=== PATIENT | female | born 1985 | race Caucasian/White ===

== ENCOUNTER 2020-03-21 12:17 | Emergency (ER) | payer OTHER, SELFPAY ==
--- NOTE | ~2020-03-21 | XR_ITS ---
EXAMINATION: XR elbow LT min 3V DATE: 03/21/2020 13:14 INDICATION: Left elbow injury. Pain. TECHNIQUE: 4 views of left elbow were obtained. COMPARISON: None. FINDINGS: Bone alignment is normal. No fracture. Joint spaces are well maintained. There is no elbow joint effusion. IMPRESSION: 1. Normal left elbow. Reviewed, dictated and finalized at location A. S ENABLEMENT CONSULTANT IMPRESSION: 1. Normal left elbow.
[2020-03-21 12:17] VITALS: BP 123/77; PULSE 93; RESP 18; TEMP 36.5; O2SAT 100
[2020-03-21] MEDS: IBUPROFEN 600 MG TABLET PO (12:50)
--- NOTE | 2020-03-21 12:54 | ED.GENADULT ---
HPI - General Adult General Chief complaint: Extremity Injury, Upper <Godfrey Flores PA-C - Last Filed: 03/21/20 13:33> Stated complaint: Left Elbow Pain <Godfrey Flores PA-C - Last Filed: 03/21/20 13:33> Time Seen by Provider: 03/21/20 12:22 <Godfrey Flores PA-C - Last Filed: 03/21/20 13:33> Source: patient <Godfrey Flores PA-C - Last Filed: 03/21/20 13:33> Mode of arrival: ambulatory <Godfrey Flores PA-C - Last Filed: 03/21/20 13:33> Limitations: no limitations <Godfrey Flores PA-C - Last Filed: 03/21/20 13:33> History of Present Illness HPI narrative: Patient is a 35-year-old female who presents to emergency department for evaluation of left elbow pain that began while picking an object up patient notes aching pain from the elbow that radiates down into the hand worse with any activity or movement patient denies other injuries or complaints <Godfrey Flores PA-C - Last Filed: 03/21/20 13:33> Related Data Home medications: Home Medications Medication Instructions Recorded Confirmed No Home Medications 03/21/20 03/21/20 <Godfrey Flores PA-C - Last Filed: 03/21/20 13:33> Allergies/adverse reactions: Allergies Allergy/AdvReac Type Severity Reaction Status Date / Time No Known Allergies Allergy Verified 03/21/20 12:21 <Godfrey Flores PA-C - Last Filed: 03/21/20 13:33> Review of Systems Review of Systems: All systems reviewed & are unremarkable except as noted in HPI and below <Godfrey Flores PA-C - Last Filed: 03/21/20 13:33> PMFSH Social History Social History: Social History Gender identity (if verbalized by the patient): Female <Godfrey Flores PA-C - Last Filed: 03/21/20 13:33> Exam Narrative: Exam Narrative: GENERAL: Well-appearing, well-nourished, and in no acute distress. HEAD: Normocephalic, atraumatic. EYES: PERRLA and EOMI. ENT: Nares clear, no rhinorrhea or epistaxis. Mucous membranes moist. EXTREMITIES: Normal range of motion. No edema. Tenderness of the left elbow no deformities noted SKIN: Warm, dry, no rash. NEURO: No focal deficits. Alert and oriented x3. Neurovascularly intact PSYCH: Normal mood and affect. <MAGUE Price Last Filed: 03/21/20 13:33> Course Course Emergency Course: Patient with elbow pain no fracture felt appropriate for outpatient reevaluation provided with orthopedic follow-up <Godfrey Flores PA-C - Last Filed: 03/21/20 13:33> Vital Signs Vital signs: Vital Signs Temperature 36.5 C 03/21/20 12:17 Pulse Rate 93 03/21/20 12:17 Respiratory Rate 18 03/21/20 12:17 Blood Pressure 123/77 03/21/20 12:17 Pulse Oximetry 100 03/21/20 12:17 Temperature 36.5 C 03/21/20 12:17 Pulse Rate 88 03/21/20 13:16 Respiratory Rate 15 03/21/20 13:16 Blood Pressure 113/81 03/21/20 13:16 Pulse Oximetry 99 03/21/20 13:16 <Godfrey Flores PA-C - Last Filed: 03/21/20 13:33> Vital Signs Temperature 36.5 C 03/21/20 12:17 Pulse Rate 93 03/21/20 12:17 Respiratory Rate 18 03/21/20 12:17 Blood Pressure 123/77 03/21/20 12:17 Pulse Oximetry 100 03/21/20 12:17 Temperature 36.5 C 03/21/20 12:17 Pulse Rate 88 03/21/20 13:16 Respiratory Rate 15 03/21/20 13:16 Blood Pressure 113/81 03/21/20 13:16 Pulse Oximetry 99 03/21/20 13:16 <Felisha Walsh MD - Last Filed: 03/21/20 14:11> Medical Decision Making MDM Narrative Medical decision making narrative: Patients injury or pain is consistent with musculoskeletal etiology. No signs of neurological or vascular compromise on exam. Compartments and tisues are soft without signs of compartment syndrome. Pain is felt appropriate for further evaluation on an outpatient basis. <Godfrey Flores PA-C - Last Filed: 03/21/20 13:33> Vital Signs Vital Signs: Vital Signs Temperature
[2020-03-21 13:16] VITALS: BP 113/81; PULSE 88; RESP 15; O2SAT 99
== END 2020-03-21 13:52 | disposition home or self-care (01) ==
PROVIDERS: Emergency Provider Emergency Medicine
DX: M25.522 Pain in left elbow (principal)
CPT/HCPCS: 73080; 99283; A9270

== ENCOUNTER 2020-04-07 08:04 | Emergency (ER) | payer OTHER, SELFPAY ==
--- NOTE | ~2020-04-07 | CT_ITS ---
EXAMINATION: CT cervical spine wo con DATE: 04/07/2020 08:52 INDICATION: Neck pain. Head injury. TECHNIQUE: Computed tomography (CT) of the cervical spine was performed without intravenous contrast. Automated exposure control and iterative reconstruction technique were employed. The dose-length pro duct was 404.11 mGy-cm. COMPARISON: None FINDINGS: There is 11 degrees dextroscoliosis of cervical spine. Vertebral body heights are normal. T here is mildly decreased disc height at C3-C4 and C4-C5, moderately decreased disc height at C5-C6, a nd mildly decreased disc height at C6-C7. The following disc levels are specifically discussed: C2-C3: There is no uncovertebral joint osteoarthritis. There is no facet joint osteoarthritis. There is no neural foraminal stenosis. There is no central canal stenosis. C3-C4: There is mild bilateral uncovertebral joint osteoarthritis. There is mild left facet joint ost eoarthritis. There is no neural foraminal stenosis. There is mild central canal stenosis. C4-C5: There is no uncovertebral joint osteoarthritis. There is no facet joint osteoarthritis. There is no neural foraminal stenosis. There is mild central canal stenosis. C5-C6: There is moderate bilateral uncovertebral joint osteoarthritis. There is mild right and modera te left facet joint osteoarthritis. There is mild bilateral neural foraminal stenosis. There is mild central canal stenosis. C6-C7: There is no uncovertebral joint osteoarthritis. There is mild right and moderate left facet radha int osteoarthritis. There is no neural foraminal stenosis. There is no central canal stenosis. C7-T1: There is no uncovertebral joint osteoarthritis. There is severe bilateral facet joint osteoart hritis. There is mild left neural foraminal stenosis. There is no central canal stenosis. IMPRESSION: 1. No fracture. 2. Moderate cervical spondylosis. Reviewed, dictated and finalized at location B. ULATION ANALYST
--- NOTE | ~2020-04-07 | CT_ITS ---
EXAMINATION: CT brain wo con DATE: 04/07/2020 08:51 INDICATION: Head injury and neck pain. TECHNIQUE: Computed tomography (CT) of the head was performed without intravenous contrast. Sagittal and coronal reconstructions were performed. Extra dose Shad head The dose-length product was 605. 33 mGy-cm. COMPARISON: None FINDINGS: No fracture. No acute intracranial hemorrhage, acute infarction or abnormal extra axial fluid collect ion. Ventricles are normal and symmetric. Aleksey cisterna magna. No mass/mass effect. The orbits and ma stoid air cells are normal. Opacification of the posterior most left ethmoid air cell. IMPRESSION: 1. No fracture or acute intracranial process. Reviewed, dictated and finalized at location A. N RESOURCES PROFESSIONAL
[2020-04-07 08:07] VITALS: BP 109/75; PULSE 94; RESP 19; TEMP 36.8; O2SAT 100
--- NOTE | 2020-04-07 08:40 | ED.HEATRA ---
HPI - Head Injury General Chief complaint: Head Injury Stated complaint: hit head on metal shelve at work Time Seen by Provider: 04/07/20 08:26 Source: patient Mode of arrival: EMS Limitations: no limitations History of Present Illness HPI Narrative: 35 years old white female complaining of headache and neck pain. Patient was bending over at work to do something got up and the back of her head against a metal beam, caused headache and dizziness and blurry vision. Patient denied loss of consciousness. Patient arrived to the ED by ambulance. Patient denies other injuries. Patient denies any fever, chills, vomiting, diarrhea, chest pain, shortness of breath, exposure to anybody known having COVID-19 Related Data Allergies Allergy/AdvReac Type Severity Reaction Status Date / Time No Known Allergies Allergy Verified 04/07/20 08:15 Review of Systems Review of Systems: Narrative: CONSTITUTIONAL: Denies fever, chills, or sweats. EYES: Denies visual changes, redness, or discharge. ENT: Denies rhinorrhea, congestion, sore throat, or otalgia. CARDIOVASCULAR: Denies chest pain, palpitations, or edema. RESPIRATORY: Denies cough or dyspnea. GASTROINTESTINAL: Denies abdominal pain, nausea, vomiting, or diarrhea. GENITOURINARY: Denies dysuria or hematuria. SKIN: Denies rash or itching. MUSCULOSKELETAL: Denies back pain, joint pain, or myalgia. NEUROLOGIC: Headache and neck pain PMFSH Social History Social History Gender identity (if verbalized by the patient): Female Exam Narrative: Exam Narrative: General appearance: Well-developed, well-nourished Skin: Normal color Head: Normocephalic, nontraumatic, patient have very thick long hair. Eyes: Clear conjunctiva ENT: Oropharynx normal, ears normal, nose normal Neck: Supple, posterior tenderness, no bruises Chest and respiratory: Airway patent, no respiratory distress, no accessory muscle use Heart: Regular rate/rhythm Musculoskeletal: Normal range of motion, nontender back Neurologic: Alert and oriented ?3, COVERSTITCH BINDER is normal as tested, no gross motor deficit Course Course Emergency Course: Stable Vital Signs Vital signs: Vital Signs Temperature 36.8 C 04/07/20 08:07 Pulse Rate 94 04/07/20 08:07 Respiratory Rate 19 04/07/20 08:07 Blood Pressure 109/75 04/07/20 08:07 Pulse Oximetry 100 04/07/20 08:07 Temperature 36.8 C 04/07/20 08:07 Pulse Rate 94 04/07/20 08:07 Respiratory Rate 19 04/07/20 08:07 Blood Pressure 109/75 04/07/20 08:07 Pulse Oximetry 100 04/07/20 08:07 MDM - Head Injury MDM Narrative Medical decision making narrative: Closed head injury, cervical sprain/strain is my concern. CT head and cervical spine ordered. IV Toradol, oral Vistaril ordered. Further plan to follow Imaging Data Radiologist's impression: Impressions Head CT 04/07/20 08:53 IMPRESSION: 1. No fracture or acute intracranial process. Cervical Spine CT 04/07/20 08:54 IMPRESSION: 1. No fracture. 2. Moderate cervical spondylosis. Critical Care Time Critical Care Time Critical Care Time: No Discharge Plan Discharge Clinical Impression: Closed head injury Qualifiers: Encounter type: initial encounter Qualified Code(s): S09.90XA - Unspecified injury of head, initial encounter Sprain of cervical neck Qualifiers: Encounter type: subsequent encounter Qualified Code(s): S13.9XXD - Sprain of joints and ligaments of unspecified parts of neck, subsequent encounter Patient Disposition: Home, Self-Care Condition: Stable Instructions: Head Injury (ED), Cervical Sprain (ED) Additional Instruction
[2020-04-07] MEDS: KETOROLAC 30 MG/ML VIAL (*BKC) IV PUSH (09:03)
[2020-04-07] MEDS: hydrOXYzine pamoate 25 MG CAPSULE 50 MG PO (09:03)
[2020-04-07 09:48] VITALS: BP 105/62; PULSE 79; RESP 14; O2SAT 100
== END 2020-04-07 09:40 | disposition home or self-care (01) ==
PROVIDERS: Emergency Provider Emergency Medicine
DX: S09.90XA Unspecified injury of head, initial encounter (principal); S13.9XXA Sprain of joints and ligaments of unspecified parts of neck, initial encounter; W22.8XXA Striking against or struck by other objects, initial encounter
CPT/HCPCS: 70450; 72125; 96374; 99284; A9270; J1885

== ENCOUNTER 2020-05-06 08:36 | Emergency (ER) | payer OTHER, SELFPAY ==
[2020-05-06 08:40] VITALS: BP 110/86; PULSE 118; RESP 18; TEMP 36.2; O2SAT 100
--- NOTE | 2020-05-06 09:02 | ED.BACK ---
HPI - Back Pain/Injury General Chief Complaint: Back Pain/Injury Stated Complaint: low back pain Time Seen by Provider: 05/06/20 08:53 History of Present Illness HPI Narrative: 35 yo female presents to the ED for back pain. She was pushing a cart at work when she turned to the side and felt a sudden sharp pain in the right mid back. She reports that there is a hard lump in in her back. No weakness, numbness, trauma. She has not tried anything for the pain. Related Data Allergies Allergy/AdvReac Type Severity Reaction Status Date / Time No Known Allergies Allergy Verified 05/06/20 08:48 Review of Systems Review of Systems: All systems reviewed & are unremarkable except as noted in HPI and below Constitutional: Constitutional: Denies fever(s) and Denies weakness Cardiovascular: Cardiovascular: Denies chest pain Respiratory: Respiratory: Denies dyspnea Gastrointestinal: Gastrointestinal: Denies abdominal pain Musculoskeletal: Musculoskeletal: Reports back pain Neurologic: Denies numbness and Denies weakness PMFSH Social History Social History Gender identity (if verbalized by the patient): Female Exam Const: General: no acute distress and alert Nutritional Appearance: obese Orientation/consciousness: patient oriented x3 HENMT: Head: normal to inspection Neck: Neck: normal visual inspection Resp: Effort & Inspection: normal respiratory effort Auscultation: clear to auscultation bilaterally Cardio: Rate: regular rate Rhythm: regular rhythm GI: GI Palp: Yes Soft to palpation and No Tenderness to palpation present (GI) Back/Spine/Pelvis: Back: no CVA tenderness Other: Tenderness in right thoracic back Skin: General skin exam: normal color Rashes: no rashes Wounds: no wounds Neuro: General: patient oriented x3, moves all extremities, no focal motor deficits and CN's II-XI intact bilaterally Speech: normal speech Gait exam (Neuro): Normal gait present Extrem: General: normal to inspection Course Vital Signs Vital signs: Vital Signs Temperature 36.2 C L 05/06/20 08:40 Pulse Rate 118 H 05/06/20 08:40 Respiratory Rate 18 05/06/20 08:40 Blood Pressure 110/86 05/06/20 08:40 Pulse Oximetry 100 05/06/20 08:40 Temperature 36.2 C L 01/08/21 08:40 Pulse Rate 88 05/06/20 10:30 Respiratory Rate 20 05/06/20 10:30 Blood Pressure 132/88 05/06/20 10:30 Pulse Oximetry 99 05/06/20 10:30 MDM - Back Pain/Injury MDM Narrative Medical decision making narrative: H&P consistent with thoracic back strain Discharge Plan Discharge Clinical Impression: Strain of thoracic back region Patient Disposition: Home, Self-Care Condition: Stable Instructions: Thoracic Back Strain (ED) Prescriptions: New naproxen 500 mg tablet 500 mg PO BID PRN (Reason: pain) Qty: 30 RF: 0 cyclobenzaprine 10 mg tablet 10 mg PO TID PRN (Reason: muscle spasm) Qty: 20 RF: 0 Follow-up/Referrals: Jeffrey Alvarado Jr., MD [Physician] - PHYSICIAN,SECURITY MESSENGER [Primary Care Provider] -
[2020-05-06] MEDS: KETOROLAC (*BKC) 60 MG/2 ML VIAL IM (10:00)
[2020-05-06] MEDS: ACETAMINOPHEN 500 MG TABLET 1000 MG PO (10:01)
[2020-05-06] MEDS: CYCLOBENZAPRINE HCL 10 MG TABLET PO (10:01)
[2020-05-06 10:30] VITALS: BP 132/88; PULSE 88; RESP 20; O2SAT 99
== END 2020-05-06 10:30 | disposition home or self-care (01) ==
PROVIDERS: Emergency Provider Emergency Medicine
DX: S29.012A Strain of muscle and tendon of back wall of thorax, initial encounter (principal); X50.9XXA Other and unspecified overexertion or strenuous movements or postures, initial encounter
CPT/HCPCS: 96372; 99283; A9270; J1885

== ENCOUNTER 2020-08-10 13:20 | Emergency (ER) | payer OTHER, SELFPAY ==
--- NOTE | ~2020-08-10 | XR_ITS ---
EXAMINATION: XR ankle LT min 3V DATE: 08/10/2020 14:01 INDICATION: Left ankle injury and swelling. TECHNIQUE: 4 views of left ankle were obtained. COMPARISON: Left ankle radiographs 09/09/2017 FINDINGS: Bone alignment is normal. No fracture. Joint spaces are well maintained. There is an enthes ophyte at plantar aspect of calcaneal tuberosity. Ankle soft tissue swelling is noted. IMPRESSION: 1. No fracture. Reviewed, dictated and finalized at location A. IMPRESSION: 1. No fracture.
[2020-08-10 13:43] VITALS: BP 126/49; PULSE 98; RESP 16; TEMP 36.4; O2SAT 100
--- NOTE | 2020-08-10 14:19 | ED.LOWEXIN ---
HPI - Extremity Injury (Lower) General Chief Complaint: Extremity Injury, Lower Stated Complaint: left ankle pain Time Seen by Provider: 08/10/20 13:47 Source: patient and RN notes reviewed Mode of arrival: ambulatory Limitations: no limitations History of Present Illness HPI Narrative: Patient presents today complaining of a left ankle injury. She rolled her ankle off the curb at 1230 this afternoon. Denies numbness or tingling. Currently rates her pain 8/10, which increases with movement and weightbearing. She has tried no interventions prior to arrival. She has been ambulatory with increased pain. MD complaint: ankle injury Related Data Home Medications Medication Instructions Recorded Confirmed No Home Medications 08/10/20 08/10/20 Allergies Allergy/AdvReac Type Severity Reaction Status Date / Time No Known Allergies Allergy Verified 08/10/20 13:38 Review of Systems Review of Systems: Narrative: CONSTITUTIONAL: Denies body aches, fever, chills, or sweats. EYES: Denies visual changes, redness, or discharge. ENT: Denies rhinorrhea, congestion, sore throat, or otalgia. CARDIOVASCULAR: Denies chest pain, palpitations, or edema. RESPIRATORY: Denies cough or dyspnea. GASTROINTESTINAL: Denies abdominal pain, nausea, vomiting, or diarrhea. GENITOURINARY: Denies dysuria or hematuria. SKIN: Denies rash, itching, or wounds. MUSCULOSKELETAL: Denies back pain, or myalgia. + Left ankle injury NEUROLOGIC: Denies headache, numbness, tingling, or weakness. PSYCH: Denies depression or anxiety. PMFSH Social History Social History Gender identity (if verbalized by the patient): Female Comments At time of signature, I have reviewed and agree with nursing past medical, surgical, social and family history unless otherwise noted. Please see nursing chart for further information. There is no relevant family history pertinent to the presenting complaint Exam Narrative: Exam Narrative: GENERAL: Well-appearing, well-nourished, and in no acute distress. HEAD: Normocephalic, atraumatic. EYES: EOMI. No redness or drainage. Conjunctivae normal. ENT: Mucous membranes pink and moist. NECK: Normal AROM. CHEST: No respiratory distress. EXTREMITIES: Left ankle: Bony and soft tissue tenderness to the anterior, medial, and lateral ankle, with mild edema. Tenderness extends to the mid foot, over all 5 metatarsals. Distal sensation intact. Capillary refill normal. Pedal pulse normal. Full range of motion of all toes with increased pain. Decreased range of motion of the ankle due to pain. SKIN: Warm, dry, no rash. Capillary refill normal. Normal skin turgor. NEURO: No focal deficits. Alert and oriented x3. Gait steady. PSYCH: Normal affect. No signs of depression or anxiety. Course Vital Signs Vital signs: Vital Signs Temperature 97.5 F L 08/10/20 13:43 Pulse Rate 98 08/10/20 13:43 Respiratory Rate 16 08/10/20 13:43 Blood Pressure 126/49 L 08/10/20 13:43 Pulse Oximetry 100 08/10/20 13:43 Temperature 97.5 F L 08/10/20 13:43 Pulse Rate 98 08/10/20 13:43 Respiratory Rate 16 08/10/20 13:43 Blood Pressure 126/49 L 08/10/20 13:43 Pulse Oximetry 100 08/10/20 13:43 Reviewed. Pt has been instructed to follow up with her PCP regarding her elevated blood pressure today. MDM - Extremity Injury (Lower) Differential Diagnosis Differential diagnosis: Likely ankle sprain and strain, ankle fracture and other (Foot fracture, foot sprain, contusion) Imaging Data Radiologist's impression: ITS Impressions Ankle X-Ray 08/10/20 14:02 IMPRESSION: 1. No fracture. Critical Care Time Critical Care Time Critical Care Time: No Discharge Plan Discharge Clinical Impression: Left ankle sprain Qualifiers: Encounter type: initial encounter Involved ligament of ankle: unspecified ligament Qualified Code(s): S93.402A - Sprain of
== END 2020-08-10 14:26 | disposition home or self-care (01) ==
PROVIDERS: Emergency Provider Nurse Practitioner
DX: S93.402A Sprain of unspecified ligament of left ankle, initial encounter (principal); X50.9XXA Other and unspecified overexertion or strenuous movements or postures, initial encounter
CPT/HCPCS: 73610; 99213; G0463

== ENCOUNTER 2020-09-12 12:24 | Emergency (ER) | payer OTHER, SELFPAY ==
--- NOTE | ~2020-09-12 | XR_ITS ---
EXAMINATION: XR hand RT min 3V, XR wrist RT min 3V EXAM DATE: 09/12/2020 12:51 (accession [id number]), 09/12/2020 12:52 (accession [id number]) INDICATION: Initial encounter following injury, with pain of the right wrist and hand. TECHNIQUE: Right hand frontal, lateral and oblique projections obtained and reviewed. Right wrist fro ntal, frontal with ulnar deviation, oblique and lateral projections obtained and reviewed. There is no prior study for comparison. FINDINGS: Right metacarpal bones are unremarkable. Right wrist scapholunate joint space is maintain ed. There are no acute fractures or dislocations identified. There is no subcutaneous gas. The soft tissue is unremarkable. There are no radiopaque foreign bodies. IMPRESSION: No acute osseous findings. Reviewed, dictated and finalized at location A. IMPRESSION: No acute osseous findings. IMPRESSION: No acute osseous findings.
[2020-09-12 12:32] VITALS: BP 108/66; PULSE 84; RESP 16; TEMP 36.9; O2SAT 100
--- NOTE | 2020-09-12 12:33 | ED.UPPEXIN ---
HPI - Extremity Injury (Upper) General Chief Complaint: Extremity Injury, Upper Stated Complaint: Right wrist pain Time Seen by Provider: 09/12/20 12:56 Source: patient and RN notes reviewed Mode of arrival: ambulatory Limitations: no limitations History of Present Illness HPI narrative: 35-year-old female presents with concern for right wrist and hand pain. She is right-hand dominant. Reports multiple injuries over the past month to the hand and wrist. Reports after the first injury 1 month ago the pain and range of motion never went back to normal. Reports yesterday she slipped with her hand going into a washing machine causing dorsal wrist pain and digit pain with range of motion. She reports while she was at work today she attempted to lift a heavy object causing worsening dorsal hand and digit pain. Reports she is taken Tylenol with some relief for pain prior to today's injury. She reports she is unable to move her fifth digit of her right hand since her original injury. MD complaint: injury to: right and wrist Related Data Home Medications Medication Instructions Recorded Confirmed No Home Medications 08/10/20 08/10/20 Allergies Allergy/AdvReac Type Severity Reaction Status Date / Time No Known Allergies Allergy Verified 08/10/20 13:38 Review of Systems Review of Systems: Narrative: CONSTITUTIONAL: Denies malaise, chills, sweats, or fever. SKIN: Denies abrasions, lacerations. Reports dorsal right hand swelling and bruising MUSCULOSKELETAL: Reports right wrist and hand pain, swelling, decreased range of motion NEUROLOGIC: Denies numbness, weakness All systems reviewed & are unremarkable except as noted in HPI and below PMFSH Social History Social History Gender identity (if verbalized by the patient): Female Comments At time of signature, agree with nursing past medical, surgical, social and family history. There is no relevant family history pertinent to the presenting complaint Exam Narrative: Exam Narrative: GENERAL: Well-appearing, well-nourished, and in no acute distress. HEAD: Normocephalic, atraumatic. EYES: PERRLA, conjunctivae clear NECK: Supple. CHEST: Speaks in full sentences. No respiratory distress. HEART: Regular rate and rhythm. Normal and equal peripheral pulses. EXTREMITIES: Right hand and digits of right hand have normal sensation, limited range of motion. Dorsal wrist and hand edema and ecchymosis. 5/5 strength with digits 1, 2, 3, 4 flexion and extension. 2/5 strength with digit 5 flexion. Normal sensation with sensitivity to light touch and pain. Dorsal tenderness. Unable to do okay sign or thumbs up. No open wounds, no skin tenting, no devitalized tissue or atrophy, no trophic changes, no obvious deformity, alignment normal, nearby joints and structures intact. Distal pulses palpable and equal bilaterally, skin warm, dry, pink. Capillary refill less than 3 seconds. SKIN: Warm, dry, no rash. NEURO: Alert and oriented x3. PSYCH: Normal mood and affect Course Course Emergency Course: Patient is aware of diagnosis, understands and agrees to treatment plan. Anticipatory guidance given. Patient agrees to follow-up as directed and is aware of reasons to seek care at the emergency department. Portions of this record may have been created with voice recognition software Vital Signs Vital signs: Vital Signs Temperature 98.5 F 09/12/20 12:32 Pulse Rate 84 09/12/20 12:32 Respiratory Rate 16 09/12/20 12:32 Blood Pressure 108/66 09/12/20 12:32 Pulse Oximetry 100 09/12/20 12:32 Temperature 98.5 F 09/12/20 12:32 Pulse Rate 84 09/12/20 12:32 Respiratory Rate 16 09/12/20 12:32 Blood Pressure 108/66 09/12/20 12:32 Pulse Oximetry 100 09/12/20 12:32 Reviewed. MDM - Extremity Injury (Upper) MDM Narrative Medical decision making narrative: Patients injury and pain is consistent with musculoskel
== END 2020-09-12 13:13 | disposition home or self-care (01) ==
PROVIDERS: Emergency Provider Nurse Practitioner
DX: S63.501A Unspecified sprain of right wrist, initial encounter (principal); S66.911A Strain of unspecified muscle, fascia and tendon at wrist and hand level, right hand, initial encounter; X50.0XXA Overexertion from strenuous movement or load, initial encounter
CPT/HCPCS: 73110; 73130; 99213; G0463

== ENCOUNTER 2021-10-24 06:50 | Observation (INO) | payer OTHER, SELFPAY ==
[2021-10-24] VITALS (10 sets, daily range): BP systolic 115–132; BP diastolic 56–86; PULSE 78–94; RESP 12–20; TEMP 36.4–36.6; O2SAT 97–100; BMI 29.7
--- NOTE | ~2021-10-24 | MR_ITS ---
EXAMINATION: MR brain/brain stem wo/w con DATE: 10/24/2021 12:38 INDICATION: Left arm numbness TECHNIQUE: Magnetic resonance imaging (MRI) of the brain and brainstem was performed without and with 15 mL Multihance intravenous contrast. Sequences included sagittal and axial T1-weighted SE, axial d iffusion-weighted FS SE, axial T2*-weighted GRE, axial T2-weighted FLAIR, and axial T2-weighted FSE. Postcontrast axial and coronal T1-weighted SE was obtained. Apparent diffusion coefficient (ADC) maps were created. COMPARISON: None. FINDINGS: There are no areas of restricted diffusion to suggest acute infarction. No intracranial hemorrhage or abnormal intracranial mass lesion. There are no intraparenchymal signal abnormalities seen on the ot her pulse sequences. The ventricles are symmetric and normal in size. Normal variant megacisterna mag na. There are no abnormal extra-axial fluid collections. Flow voids are seen in the cerebral arteries on the T2-weighted sequences consistent with their expected patency. Mild mucosal thickening in the paranasal sinuses. Visualized orbits and soft tissues are unremarkable. There are no areas of abnorma l enhancement on the post contrast images. IMPRESSION: 1. Normal anatomic variant chelsi cisterna magna. Otherwise normal brain with no acute intracranial pro cess or abnormally enhancing lesions. Reviewed, dictated and finalized at location A. IMPRESSION: 1. Normal anatomic variant chelsi cisterna magna. Otherwise normal brain with no acute intracranial process or abnormally enhancing lesions.
--- NOTE | ~2021-10-24 | MR_ITS ---
EXAMINATION: MR cervical spine wo con DATE: 10/24/2021 12:38 INDICATION: Sudden onset left arm numbness and weakness morning of 10/24. Left arm heaviness with left -sided chest pain. TECHNIQUE: Magnetic resonance imaging (MRI) of the cervical spine was performed without intravenous c ontrast. Sequences included sagittal T2-weighted FSE, sagittal T2-weighted FS FSE, sagittal T1-weight ed FSE, axial MERGE, and axial T2-weighted FSE. COMPARISON: CT cervical spine 04/07/2020. FINDINGS: Mildly motion limited. Craniocervical association and atlantoaxial joint are intact. Normal alignment. Vertebral body heights are maintained. Multilevel disc dehydration and height loss. The c ord signal is normal. The following disc levels are specifically discussed: C2-C3: The disc does not extend beyond the endplate margin. There is no uncovertebral joint osteoarth ritis. There is no facet joint osteoarthritis. There is no neural foraminal stenosis. There is no mik tral canal stenosis. C3-C4: The disc does not extend beyond the endplate margin. There is no uncovertebral joint osteoarth ritis. There is mild facet joint osteoarthritis. There is no neural foraminal stenosis. There is no c entral canal stenosis. C4-C5: Mild diffuse bulge There is mild uncovertebral joint osteoarthritis. There is mild facet joint osteoarthritis. There is no neural foraminal stenosis. There is no central canal stenosis. C5-C6: 4 mm left paracentral protrusion superimposed on a diffuse bulge with marginal osteophytosis. There is mild uncovertebral joint osteoarthritis. There is moderate facet joint osteoarthritis. There is mild bilateral neural foraminal stenosis. There is moderate central canal stenosis. C6-C7: 3 mm central extrusion extending 10 mm superiorly along the posterior surface of C6. There is moderate bilateral uncovertebral joint osteoarthritis. There is moderate bilateral facet joint osteoa rthritis. There is moderate bilateral neural foraminal stenosis. There is moderate central canal sten osis. C7-T1: The disc does not extend beyond the endplate margin. There is mild uncovertebral joint osteoar thritis. There is mild facet joint osteoarthritis. There is no neural foraminal stenosis. There is no central canal stenosis. IMPRESSION: 1. Superiorly directed 3 mm central C6-7 disc protrusion, which in combination with moderate uncovert ebral joint and facet osteoarthritis, causes moderate central canal narrowing. 2. 4 mm left paracentral C5-6 discs protrusion, which in combination with uncovertebral joint and fac et osteoarthritis, causes moderate central canal stenosis. 3. Moderate bilateral neural foraminal narrowing at C6-7. Reviewed, dictated and finalized at location K. IMPRESSION: 1. Superiorly directed 3 mm central C6-7 disc protrusion, which in combination with moderate uncovertebral joint and facet osteoarthritis, causes moderate mik tral canal narrowing. 2. 4 mm left paracentral C5-6 discs protrusion, which in combination with uncov ertebral joint and facet osteoarthritis, causes moderate central canal stenosis . 3. Moderate bilateral neural foraminal narrowing at C6-7.
--- NOTE | ~2021-10-24 | CT_ITS ---
EXAMINATION: CT brain wo con DATE: 10/24/2021 07:29 INDICATION: Left arm numbness TECHNIQUE: Computed tomography (CT) of the head was performed without intravenous contrast. Sagittal and coronal reconstructions were performed. The mA was adjusted according to patient size. Iterative reconstruction technique was employed. The dose-length product was 605.33 mGy-cm. COMPARISON: head CT dated 04/07/2020 FINDINGS: No acute intracranial hemorrhage, acute infarction or abnormal extra axial fluid collection. Ventricl es are normal and symmetric. Normal anatomic variant chelsi cisterna magna. No mass/mass effect. Persis tent opacification of the posterior most left ethmoid air cell, likely mucous retention cyst. The orb its and mastoid air cells are normal. IMPRESSION: 1. No acute intracranial process. Reviewed, dictated and finalized at location A.
--- NOTE | 2021-10-24 06:59 | ECG_ITS ---
Measurements Intervals [place] Rate: 92 P: 61 WI: 141 QRS: 68 QRSD: 85 T: 45 QT: 331 QTc: 410 Interpretive Statements SINUS RHYTHM NO PREVIOUS ECG AVAILABLE FOR COMPARISON Electronically Signed On 10-24-2021 10:56:17 CDT by Cyril Cox M.D.
[2021-10-24 07:10] LABS: Basophils Absolute Auto 0.1 K/mm3 (0.0-0.1); Basophils Percent Auto 0.9 % (0.2-1.2); Eosinophils Absolute Auto 0.5 K/mm3 (0-0.3); Eosinophils Percent Auto 7.7 % (0-4.4); Hematocrit 32.5 % (37.0-47.0); Hemoglobin 9.2 g/dL (12.0-15.0); Immature Granulocyte Absolute 0.02 K/mm3 (0.00-0.031); Immature Granulocyte Percent A 0.3 % (0-0.5); Lymphocytes Absolute Auto 1.93 K/mm3 (0.9-3.2); Lymphocytes Percent Auto 33.2 % (18.3-44.2); Mean Corpuscular HGB Conc 28.3 g/dl (32-36); Mean Corpuscular Hemoglobin 19.9 pg (26-34); Mean Corpuscular Volume 70.2 fl (80-100); Mean Platelet Volume 9.3 fl (7.4-10.4); Monocytes Absolute Auto 0.4 K/mm3 (0.1-0.6); Monocytes Percent Auto 7.6 % (2.6-8.5); Neutrophils Absolute Auto 2.9 K/mm3 (1.3-6.7); Neutrophils Percent Auto 50.3 % (45.5-73.1); Platelet Count Result 226 k/mm3 (150-375); Red Blood Count 4.63 M/mm3 (4.2-5.4); Red Cell Distribution Width 17.6 % (11.5-14.5); White Blood Count 5.8 K/mm3 (4.5-10.0)
--- NOTE | 2021-10-24 07:16 | ED.NEUROSD ---
HPI - Neuro Symptoms/Deficit General Chief Complaint: Neuro Symptoms/Deficit Stated Complaint: left arm tingling and pain Time Seen by Provider: 10/24/21 07:14 History of Present Illness HPI Narrative: Pt presents with complaints of left arm numbness and heaviness since 544. Pt says her arm is numb and feels heavy but able to move it. Pt also complains of left sided chest pain with movement. Pt had a posterior SHAH the last few days but has no SHAH now. Nothing makes the numbness better or worse. The pain in her left chest is reproduced with movement and palpation of her left pectoralis muscle. Related Data Home Medications Medication Instructions Recorded Confirmed No Home Medications 08/10/20 11/24/20 Allergies Allergy/AdvReac Type Severity Reaction Status Date / Time No Known Allergies Allergy Verified 11/24/20 14:37 Review of Systems Review of Systems: All systems reviewed & are unremarkable except as noted in HPI and below PMFSH Past Medical History Medical History Light headedness Right wrist injury Weight gain Family History Family History (Updated 10/24/21 @ 12:56 by Anneliese Urias RN) Father Diabetes mellitus Social History Social History Smoking status: Never smoker Second hand tobacco smoke exposure: No Alcohol intake: never Substance use: never Gender identity (if verbalized by the patient): Female Spiritual care concerns: No Exam Const: General: healthy appearing and no acute distress Nutritional Appearance: well nourished Orientation/consciousness: patient oriented x3 Limitations: no limitations HENMT: Head: normal to inspection Eyes: Conjunctivae: conjunctivae normal EOM: EOMs intact bilaterally Neck: Neck: normal visual inspection and no lymphadenopathy Chest: Other: tender to palpation left pectoralis major muscle Resp: Effort & Inspection: normal respiratory effort Auscultation: clear to auscultation bilaterally Cardio: Rate: regular rate Rhythm: regular rhythm GI: GI Palp: Yes Soft to palpation Auscultation: normal bowel sounds Skin: General skin exam: normal color Rashes: no rashes Wounds: no wounds Neuro: General: patient oriented x3, moves all extremities, no focal motor deficits and CN's II-XI intact bilaterally Cranial nerves: Yes Nystagmus not present Speech: normal speech Other: subjective numbness to entire left arm Extrem: General: normal to inspection and no clubbing, cyanosis or edema Psych: Mental Status: mental status grossly normal Affect: normal affect Attitude: cooperative Course Course Emergency Course: d/w dr riggs agrees to admit, would like MRI and brain and c spine and neurology consult d/w dr rich will see pt in consult Vital Signs Vital signs: Vital Signs Temperature 98 F 10/24/21 06:58 Pulse Rate 86 10/24/21 06:58 Respiratory Rate 18 10/24/21 06:58 Blood Pressure 129/86 10/24/21 06:58 Pulse Oximetry 100 10/24/21 06:58 Oxygen Delivery Room Air 10/24/21 06:58 Temperature 97.6 F 10/24/21 13:00 Pulse Rate 80 10/24/21 16:00 Respiratory Rate 16 10/24/21 13:00 Blood Pressure 132/72 10/24/21 13:00 Pulse Oximetry 100 10/24/21 13:00 Oxygen Delivery Room Air 10/24/21 06:58 MDM - Neuro Symptoms/Deficit Lab Data Result diagrams: 10/24/21 07:06 10/24/21 07:06 Labs: Lab Results 10/24/21 10/24/21 10/24/21 Range/Units 07:06 07:06 07:06 WBC 5.8 (4.5-10.0) K/mm3 RBC 4.63 (4.2-5.4) M/mm3 Hgb 9.2 L (12.0-15.0) g/dL Hct 32.5 L (37.0-47.0) % MCV 70.2 L (80-100) fl MCH 19.9 L (26-34) pg MCHC 28.3 L (32-36) g/dl RDW 17.6 H (11.5-14.5) % Plt Count 226 (150-375) k/mm3 MPV 9.3 (7.4-10.4) fl Immature Gran % (Auto) 0.3 (0-0.5) % Neut % (Auto) 50.3 (45.5-73.1) % Lymph % (Auto)
[2021-10-24 07:23] LABS: Alanine Aminotransferase 14 U/L (6-35); Albumin Level 3.8 g/dL (3.5-5.1); Alkaline Phosphatase 47 U/L (38-126); Anion Gap 8 mmol/L (8-16); Aspartate Amino Transferase 21 U/L (14-36); Bilirubin,Total 0.2 mg/dL (0.2-1.3); Blood Urea Nitrogen 9 mg/dL (7-17); Carbon Dioxide 22 mmol/L (22-30); Chloride 107 mmol/L (98-107); Estimated CRCL calculation 105 ml/min; Estimated Glomerular Filt Rate > 60; Glucose 96 mg/dL (65-110); Potassium 4.3 mmol/L (3.4-5.0); Sodium 137 mmol/L (137-145)
[2021-10-24 07:29] LABS: Hypochromasia 2+ (NORMAL); Microcytosis 1+ (NORMAL); Platelet Estimate Adequate (Adequate)
[2021-10-24 07:30] LABS: Ovalocytes 1+ (NORMAL)
[2021-10-24 07:37] LABS: Prothrombin Time 12.4 Seconds (11.1-14.7)
[2021-10-24 07:38] LABS: Troponin I < 0.012 ng/mL (0.000-0.034)
[2021-10-24 10:32] LABS: SARS-CoV-2 RNA PCR Negative
--- NOTE | 2021-10-24 11:52 | PC.NURSE ---
Patient taken to MRI. Called 2 med surg regarding pt being brought to room after MRI. SBAR FAXED.
--- NOTE | 2021-10-24 12:53 | ADMGEN ---
This patient, Eli George, was admitted to 2 Medical Room 256-. Patient/family oriented to hospital policies and general routines including ID bracelet, bed and alarms, visiting hours, pain management, procedures, bathroom and other care routines, personal items, smoking policy, room service/diet, and visiting hours. Information on how to activate the Rapid Response Team has been discussed. Patient/Family are encouraged to report perceived risks to care and to ask questions if they do not understand what they are told or what they should do.
[2021-10-24] MEDS: ACETAMINOPHEN 325 MG TABLET 650 MG PO (14:35)
[2021-10-24] MEDS: IBUPROFEN 600 MG TABLET PO (21:00)
[2021-10-25] VITALS: PULSE 94
--- NOTE | 2021-10-25 00:16 | PM.IMHP ---
H&P: HPI History of Present Illness Date/Time: 10/24/21 0665 Chief Complaint: Left arm numbness Narrative: Ms. George is a 36-year-old female who presented to the emergency room with complaints of left arm numbness and tingling that started at approximately 05:45 this morning. Patient states that she got up at 05:30 and was getting ready for work and then while she was driving to work her left arm went numb and she felt that she cannot move it as well as her other arm. Patient states that she felt her left arm was much weaker and she could not shrug her shoulder. Patient denied any blurred vision, double vision, slurred speech, numbness or tingling of right upper extremity, or numbness and tingling of bilateral lower extremities. Patient states she has never had episode like this before. Patient states the pain is worse with movement. Patient states that nothing improves or makes a numbness and tingling worse. Patient states her only past medical history is an ectopic and she had a left oophorectomy for this. Review of Systems Review of Systems: A 12 point review of systems was completed patient all pertinent positive and negative per HPI the remainder are unremarkable. [facility] Past Medical History Medical History (Updated 10/24/21 @ 09:18 by Alejandra Dubon III, DO) Light headedness Right wrist injury Weight gain Surgical History Surgical History (Updated 10/25/21 @ 00:20 by Bev Haro APRN) History of left oophorectomy Family History Family History (Updated 10/24/21 @ 12:56 by Anneliese Urias RN) Father Diabetes mellitus Social History Social History Smoking status: Never smoker Second hand tobacco smoke exposure: No Alcohol intake: never Substance use: never Gender identity (if verbalized by the patient): Female Spiritual care concerns: No Meds Home Medications and Allergies Home Medications Medication Instructions Recorded Confirmed Type No Home Medications 08/10/20 11/24/20 History Allergies Allergy/AdvReac Type Severity Reaction Status Date / Time No Known Allergies Allergy Verified 11/24/20 14:37 Vital Signs Vital Signs - 24 hr 10/24/21 06:58 10/24/21 07:15 10/24/21 07:17 Temperature 36.6 C Pulse Rate 86 94 83 Respiratory Rate 18 12 12 Blood Pressure 129/86 122/56 L Pulse Oximetry 100 99 100 Oxygen Delivery Room Air 10/24/21 07:45 10/24/21 13:02 10/24/21 13:00 Temperature 36.4 C Pulse Rate 88 78 78 Respiratory Rate 13 16 Blood Pressure 132/72 Pulse Oximetry 99 100 Oxygen Delivery 10/24/21 16:00 10/24/21 19:59 10/24/21 20:20 Temperature 36.6 C Pulse Rate 80 86 79 Respiratory Rate 20 Blood Pressure 115/63 Pulse Oximetry 97 100 Oxygen Delivery Room Air 10/24/21 20:00 10/24/21 20:00 Temperature Pulse Rate 80 Respiratory Rate Blood Pressure Pulse Oximetry Oxygen Delivery Room Air Exam Narrative: Constitutional: Patient is well-nourished in no acute distress. Patient is alert and oriented x3 HEENT: Moist mucous membranes. No scleral icterus. No lymphadenopathy. Neck: No carotid bruits noted no JVD noted Lungs: Lung sounds are clear to auscultation bilaterally. No accessory muscle use. No rhonchi, rales, or wheezes noted. Cardiovascular: Apical pulse is regular rate and rhythm. S1-S2 noted, no S3 or S4 noted. No gallops, murmurs, or rubs noted. Abdomen: Soft, round, and nontender. No palpable masses. Extremities: No edema. Nontender. Skin: No rashes or lesions. Warm and dry. Skin is intact. Neurological: Patient is not able to shrug her left shoulder without pain. 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 Patient does have a + Tinel sign to left arm. Nerves II-XII grossly intact. Psychiatric: Cooperative, appropriate mood, and affect H&P: Results Labs Labs: Short CBC
[2021-10-25 04:00] VITALS: PULSE 82
[2021-10-25 04:11] VITALS: BP 112/55; PULSE 83; RESP 20; TEMP 36.4; O2SAT 100
[2021-10-25 06:04] LABS: Basophils Percent Auto 0.6 % (0.2-1.2); Eosinophils Absolute Auto 0.3 K/mm3 (0-0.3); Eosinophils Percent Auto 4.5 % (0-4.4); Hematocrit 34.6 % (37.0-47.0); Hemoglobin 9.9 g/dL (12.0-15.0); Immature Granulocyte Absolute 0.03 K/mm3 (0.00-0.031); Immature Granulocyte Percent A 0.4 % (0-0.5); Lymphocytes Absolute Auto 1.89 K/mm3 (0.9-3.2); Lymphocytes Percent Auto 27.2 % (18.3-44.2); Mean Corpuscular HGB Conc 28.6 g/dl (32-36); Mean Corpuscular Hemoglobin 19.7 pg (26-34); Mean Corpuscular Volume 68.8 fl (80-100); Mean Platelet Volume 9.5 fl (7.4-10.4); Monocytes Absolute Auto 0.6 K/mm3 (0.1-0.6); Monocytes Percent Auto 8.4 % (2.6-8.5); Neutrophils Absolute Auto 4.1 K/mm3 (1.3-6.7); Neutrophils Percent Auto 58.9 % (45.5-73.1); Platelet Count Result 254 k/mm3 (150-375); Red Blood Count 5.03 M/mm3 (4.2-5.4); Red Cell Distribution Width 17.9 % (11.5-14.5); White Blood Count 6.9 K/mm3 (4.5-10.0)
[2021-10-25] MEDS: IBUPROFEN 600 MG TABLET PO (06:05)
[2021-10-25 06:20] LABS: Anion Gap 6 mmol/L (8-16); Blood Urea Nitrogen 9 mg/dL (7-17); Calcium 8.8 mg/dL (8.4-10.2); Carbon Dioxide 26 mmol/L (22-30); Chloride 106 mmol/L (98-107); Estimated CRCL calculation 95 ml/min; Estimated Glomerular Filt Rate > 60; Glucose 92 mg/dL (65-110); Potassium 3.9 mmol/L (3.4-5.0); Sodium 138 mmol/L (137-145)
[2021-10-25 06:43] LABS: Iron 22 ug/dL (37-170)
[2021-10-25 06:51] LABS: Ovalocytes 1+ (NORMAL); Platelet Estimate Adequate (Adequate)
[2021-10-25 06:52] LABS: Percent Iron Saturation 4 % (20-50)
[2021-10-25 08:00] VITALS: PULSE 95
[2021-10-25] MEDS: POLYSACCHARIDE IRON COMPLEX 150 MG CAPSULE PO (08:49)
--- NOTE | 2021-10-25 09:04 | WPDNEURCNPN ---
Assessment and Plan Assessment and plan (1) Cervical stenosis of spine: Code(s): M48.02 - Spinal stenosis, cervical region Status: Acute Plan cervical stenosis with documented abnormal MRI that is 4mm left paracentral for C5-C6 disc protrusion in addition to the uncovertebral joint and facet osteoarthritis resulting in the moderate central canal stenosis at the level of C6 and 7, MRI of the brain is normal, patient will benefit from neurosurgical intervention Consult date: 10/25/21 Time Seen: 09:00 Reason for consult: Left upper extremity paresthesia HPI: Eli George is a 36 year old female admitted to [facility] through the emergency room where she presented with the complaints of left upper extremity tingling and pain since 5:45 a.m. along with the left-sided chest pain with movements in addition patient had the headache mainly located in the back of the head there was no change in the numbness by any movements patient is not taking any medication she is not allergic to any medication she is a never smoker never drink initial evaluation documented normal vital signs normal routine lab normal EKG Review of Systems Review of Systems: All systems reviewed & are unremarkable except as noted in HPI and below PMFSH Past Medical History Medical History (Updated 10/25/21 @ 09:10 by Moe Guillen MD) Light headedness Right wrist injury Weight gain Surgical History Surgical History (Updated 10/25/21 @ 00:20 by Bev Haro APRN) History of left oophorectomy Family History Family History (Updated 10/24/21 @ 12:56 by Anneliese Urias RN) Father Diabetes mellitus Social History Social History Smoking status: Never smoker Second hand tobacco smoke exposure: No Alcohol intake: never Substance use: never Gender identity (if verbalized by the patient): Female Spiritual care concerns: No Meds Home Medications and Allergies Home Medications Medication Instructions Recorded Confirmed Type No Home Medications 08/10/20 10/25/21 History Allergies Allergy/AdvReac Type Severity Reaction Status Date / Time No Known Allergies Allergy Verified 11/24/20 14:37 Vital Signs Vital Signs - 24 hr 10/24/21 13:02 10/24/21 13:00 10/24/21 16:00 Temperature 36.4 C Pulse Rate 78 78 80 Respiratory Rate 16 Blood Pressure 132/72 Pulse Oximetry 100 Oxygen Delivery 06/28/22 19:59 10/24/21 20:20 10/24/21 20:00 Temperature 36.6 C Pulse Rate 86 79 80 Respiratory Rate 20 Blood Pressure 115/63 Pulse Oximetry 97 100 Oxygen Delivery Room Air 10/24/21 20:00 10/25/21 00:00 10/25/21 04:11 Temperature 36.4 C Pulse Rate 94 83 Respiratory Rate 20 Blood Pressure 112/55 L Pulse Oximetry 100 Oxygen Delivery Room Air 10/25/21 04:00 10/25/21 08:00 10/25/21 08:00 Temperature Pulse Rate 82 95 Respiratory Rate Blood Pressure Pulse Oximetry Oxygen Delivery Room Air Exam Const: General: cooperative, healthy appearing, comfortable and no acute distress Nutritional Appearance: average body habitus Orientation/consciousness: oriented to person, oriented to place and oriented to time Limitations: no limitations HENMT: Head: normocephalic Ears: hearing grossly normal bilaterally General nose exam: Normal external nose present Face and sinus: normal facial exam Eyes: General: appearance normal, both eyes and all related structures Visual Martin: normal visual martin by confrontation Alignment and Position: alignment normal Periorbital: periorbital findings normal Eyelids: eyelids normal Sclera: sclerae normal Cornea: corneas normal Pupils: Equal, round and reactive pupils present EOM: EOMs intact bilaterally Neck: Neck: normal visual inspection Resp: Effort & Inspection: normal respiratory effort Auscultation: clear to auscultation bilaterally Cardio: Jugular veno
--- NOTE | 2021-10-25 11:22 | PM.DS ---
DS: Admitting Diagnosis Discharge Date 10/25/21 Admitting Diagnosis Left arm numbness DS: Discharge Diagnosis Discharge Diagnosis (1) Left arm numbness: Code(s): R20.0 - Anesthesia of skin Status: Acute Assessment and Plan: Neurology has been consult and appreciate further recommendations. Patient's left arm pain and numbness could be definitely multifactorial. Patient may need to have an outpatient nerve conduction study performed for further evaluation. DS: Summary Hospital Course Reason for hospitalization: Left arm numbness Hospital Course: Patient is a 36-year-old female with minimal past medical history. Patient presented to the emergency department for complaints of left arm numbness and tingling that started approximately 545 in the morning as she was driving to work. Patient reports that her left arm went numb and she felt that she cannot move it as well as her O2 right arm. Left arm appeared weaker to her and she was unable to shrug her left shoulder. Patient was able to arrive to work and her coworkers informed her to go to the emergency department. Patient denied any blurred vision, double vision, slurred speech, new to tingling of the right upper extremity or numbness and tingling in the bilateral lower extremities. She denies any loss of bowel or urinary. Patient reports she has never had an episode like this before although she has some pain with movement with her left arm. Patient has nothing that improves her makes a numbness or tingling worse. While in the emergency department labs and imaging were obtained. Patient had WBC of 5.8, hemoglobin 9.2, hematocrit 32.5, platelet 226, sodium 137, potassium 4.3, BUN 9, creatinine 0.7 with a troponin is less than 0.[address] of the head was performed did not reveal acute intracranial processes therefore an MRI was ordered which revealed a normal atomic variant chelsi cisterna magna otherwise the brain MRI was within normal limits. Neurology was consulted due to the abnormality that was incidentally found. But apparently the patient has followed up with her primary care physician 4 months ago about the same issue and has not followed up with a neurosurgeon. While admitted Dr. Flores neurology evaluated the patient and reported that she did need to follow-up with a neurosurgeon. At the time of my encounter with the patient the patient was calling neurosurgeon in [place] for an appointment for further management. Patient denied any nausea, vomiting upset stomach or diarrhea. She denies any loss of bowel or bladder. Patient denies any chest pain or left upper extremity weakness. Patient reports she is back to baseline. Therefore she will be discharged today and sent home to follow-up with her PCP and a neurosurgeon Status at Discharge Cognitive/behavioral status at discharge: Alert and oriented x4 Functional status at discharge: independent ambulation Overall status at discharge: patient is back to baseline Time Spent with Patient Time attestation: Total time spent providing and/or coordinating discharge services: Exam Narrative: General: No acute distress. Mental Status: Awake, alert and oriented to person, place, and time with clear speech. Skin: Skin in warm, dry and intact without rashes or lesions. Head: Normocephalic and atraumatic. Eyes: Conjunctivae are clear without exudates or hemorrhage. Sclera is non-icteric. EOM are intact, PERRLA. Ears: The external ear and canal are non-tender and without swelling or discharge. Nose: Nasal mucosa is pink and moist. Septum midline. Nares patent bilaterally. Throat: Oral mucosa pink and moist with good dentition. Tongue midline. Neck: The neck supple without adenopathy. Trachea midline. No JVD. Cardiac: S1 and S2 regular rate and rhythm. No murmurs, gallops, or rubs auscultated. Respiratory: Chest wall symmetric, nontender and without deformity or trauma. Respirations even and unlabored. L
== END 2021-10-25 10:12 | disposition home or self-care (01) ==
LOC: ANHED 09:18 → ANH2MED 10-25 09:06
PROVIDERS: Emergency Medicine; Nurse Practitioner Adult Health; Admitting Provider Internal Medicine; Emergency Provider Emergency Medicine; Visit Provider Nurse Practitioner Family
DX: R20.0 Anesthesia of skin (principal); M48.02 Spinal stenosis, cervical region; Z20.822 Contact with and (suspected) exposure to COVID-19
CPT/HCPCS: 36415; 70450; 70553; 72141; 80048; 80053; 83540; 83550; 83735; 84484; 85025; 85610; 85730; 93005; 99285; A9270; A9577; C9803; G0378; G0379; U0003; U0005

== ENCOUNTER 2022-02-05 17:41 | Emergency (ER) | payer OTHER, SELFPAY ==
--- NOTE | ~2022-02-05 | XR_ITS ---
EXAM: XR shoulder LT min 2V, XR clavicle LT DATE: 02/05/2022 18:18 (accession [id number]), 02/05/2022 18:17 (accession [id number]) HISTORY: fell down steps, pain lt clavicle and shoulder . COMPARISON: None available. FINDINGS: Normal mineralization. No fracture or dislocation. No lytic or blastic lesion. Joint space s are maintained. No erosion or periosteal change. Soft tissues within normal limits. IMPRESSION: No acute osseous finding in the left shoulder or left clavicle. Reviewed, dictated and finalized at location K. IMPRESSION: No acute osseous finding in the left shoulder or left clavicle.
--- NOTE | 2022-02-05 17:44 | ED.UPPEXIN ---
HPI - Extremity Injury (Upper) General Chief Complaint: Extremity Injury, Upper Stated Complaint: Fall Left Shoulder Pain Time Seen by Provider: 02/05/22 17:44 Source: patient Mode of arrival: ambulatory Limitations: no limitations History of Present Illness HPI narrative: Ms. George is a 37-year-old female patient presenting to the clinic today with complaints of left shoulder pain after a falling down 6 stairs steps last night when she tripped on her puppy. She reports she has pain to the left anterior and lateral shoulder as well as into the clavicle area and pain is radiating into her chest. She is able to raise her arm up at approximately 30 degrees Related Data Allergies Allergy/AdvReac Type Severity Reaction Status Date / Time No Known Allergies Allergy Verified 02/05/22 17:48 Review of Systems Review of Systems: Pertinent positives per HPI. Patient denies any fever, chills, rash, headache, visual changes, dizziness, cough, runny nose, sore throat, shortness of breath, chest pain, palpitations, nausea, vomiting, diarrhea, constipation, abdominal pain, or any urinary issues. PMFSH Past Medical History Medical History Light headedness Right wrist injury Weight gain Surgical History Surgical History History of left oophorectomy Family History Family History Father Diabetes mellitus Social History Social History Smoking status: Never smoker Second hand tobacco smoke exposure: No Alcohol intake: never Substance use: never Gender identity (if verbalized by the patient): Female Spiritual care concerns: No Comments At the time of my signature, I reviewed and agree with the nursing past medical, surgical, social, and family history. There is no relevant family history pertinent to the patient complaint. Exam Narrative: General: Well-developed, well nourished, in no apparent distress Head: Normocephalic, atraumatic. Cardio: Regular rate and rhythm, s1 and s2 normal, no murmur appreciated. Resp: Clear to auscultation bilaterally, no rhonchi, rales, wheezing or rubs. Musculoskeletal: No deformity, guarding of the left shoulder, no swelling or bruising noted, tender to palpation over the anterior and lateral shoulder as well as the left shoulder blade musculature and anterior chest wall, only able to raise arm at approximately 30 degrees and is not able to hold with resistance due to pain, peripheral pulse strong, no edema, no cyanosis, normal gait and station Course Course Emergency Course: Portions of this record may have been created with voice recognition software. Level of Care: Express Care Visit Vital Signs Vital signs: Vital Signs Temperature 36.8 C 02/05/22 17:55 Pulse Rate 100 02/05/22 17:55 Respiratory Rate 18 02/05/22 17:55 Blood Pressure 115/55 L 02/05/22 17:55 Pulse Oximetry 100 02/05/22 17:55 Oxygen Delivery Room Air 02/05/22 17:55 Temperature 36.8 C 02/05/22 17:55 Pulse Rate 100 02/05/22 17:55 Respiratory Rate 18 02/05/22 17:55 Blood Pressure 115/55 L 02/05/22 17:55 Pulse Oximetry 100 02/05/22 17:55 Oxygen Delivery Room Air 02/05/22 17:55 Vital signs reviewed MDM - Extremity Injury (Upper) MDM Narrative Medical decision making narrative: At the time of visit patient is resting comfortably on the exam table. X-rays negative for any fracture or malalignment of the left shoulder or clavicle. I suspect the patient has a muscle strain/shoulder strain. Supportive measures were discussed with the patient she voiced understanding of discharge instructions. Prescriptions for Flexeril and naproxen was sent to the pharmacy. Sedation precautions were reviewed while taking Flexeril Differential Diagnos
[2022-02-05 17:55] VITALS: BP 115/55; PULSE 100; RESP 18; TEMP 36.8; O2SAT 100
== END 2022-02-05 19:20 | disposition home or self-care (01) ==
PROVIDERS: Emergency Provider Nurse Practitioner Family
DX: S46.912A Strain of unspecified muscle, fascia and tendon at shoulder and upper arm level, left arm, initial encounter (principal); S43.402A Unspecified sprain of left shoulder joint, initial encounter; W10.9XXA Fall (on) (from) unspecified stairs and steps, initial encounter
CPT/HCPCS: 73000; 73030; 99213; A4565; G0463

== ENCOUNTER 2022-02-12 17:16 | Emergency (ER) | payer OTHER, SELFPAY ==
[2022-02-12 17:33] VITALS: BP 117/66; PULSE 88; RESP 18; TEMP 36.3; O2SAT 100
--- NOTE | 2022-02-12 17:58 | ED.GENADULT ---
HPI - General Adult General Chief complaint: Extremity Injury, Upper Stated complaint: Left Shoulder Pain Time Seen by Provider: 02/12/22 18:00 Source: patient, RN notes reviewed and old records reviewed Mode of arrival: ambulatory Limitations: no limitations History of Present Illness HPI narrative: 37-year-old female presents to the [facility] with complaints of resolved left shoulder pain requesting a return to work note. Patient has no complaints at this time. Was given a work note for no heavy lifting pushing or pulling for 1 week. Related Data Allergies Allergy/AdvReac Type Severity Reaction Status Date / Time No Known Allergies Allergy Verified 02/12/22 17:48 Review of Systems Review of Systems: All systems reviewed & are unremarkable except as noted in HPI and below Constitutional: Constitutional: Reports no additional constitutional complaints, Denies chills and Denies fever(s) Eyes: Eyes: Reports no additional eye complaints ENT: Reports system reviewed and no additional complaints, except as documented Cardiovascular: Cardiovascular: Reports no additional cardiovascular complaints Respiratory: Respiratory: Reports no additional respiratory complaints Gastrointestinal: Gastrointestinal: Reports no additional gastrointestinal complaints Musculoskeletal: Musculoskeletal: Reports no additional musculoskeletal complaints Integumentary/Breasts: Skin/Breast: Reports system reviewed and no additional complaints, except as docu Neurologic: Reports system reviewed and no additional complaints, except as documented Psychiatric: Psychiatric: Reports no additional psychiatric complaints Allergic/Immunologic: Allergic/Immunologic: Reports no additional allergic/immunologic complaints PMF Past Medical History Medical History Light headedness Right wrist injury Weight gain Surgical History Surgical History History of left oophorectomy Family History Family History Father Diabetes mellitus Social History Social History Smoking status: Never smoker Second hand tobacco smoke exposure: No Alcohol intake: never Substance use: never Gender identity (if verbalized by the patient): Female Spiritual care concerns: No Comments At the time of my signature, I reviewed and agree with the nursing past medical, surgical, social, and family history. There is no relevant family history pertinent to the patient complaint. Exam Const: General: healthy appearing, no acute distress, alert and well nourished Nutritional Appearance: well nourished Orientation/consciousness: patient oriented x3 Limitations: no limitations HENMT: Head: normal to inspection Ears: external ears normal Eyes: General: appearance normal, both eyes and all related structures Pupils: Equal, round and reactive pupils present Neck: Neck: normal visual inspection, no lymphadenopathy and no meningeal signs Chest: Chest palpation & inspection: normal inspection of the chest Resp: Effort & Inspection: normal respiratory effort and no use of accessory muscles Auscultation: clear to auscultation bilaterally, no crackles, no rales, no rhonchi and no wheezes Cardio: Rate: regular rate Rhythm: regular rhythm Back/Spine/Pelvis: Cervical Spine: normal cervical lordosis Thoracic/Lumbar Spine: thoracic and lumbar spine normal to inspection Skin: General skin exam: normal color Rashes: no rashes Wounds: no wounds Neuro: General: patient oriented x3, moves all extremities, no meningeal signs and no focal motor deficits Cranial nerves: Yes Equal, round and reactive pupils present Speech: normal speech Gait exam (Neuro): Normal gait present Extrem: General: normal to inspection, full ROM and capillary refill normal Psych
== END 2022-02-12 18:18 | disposition home or self-care (01) ==
PROVIDERS: Emergency Provider Nurse Practitioner
DX: M25.512 Pain in left shoulder (principal)
CPT/HCPCS: 99212; G0463

== ENCOUNTER 2022-04-11 12:42 | Emergency (ER) | payer OTHER, SELFPAY ==
--- NOTE | ~2022-04-11 | CT_ITS ---
EXAMINATION: CT brain wo con INDICATION: Head injury COMPARISON: 10/24/2021 TECHNIQUE: Standard unenhanced head CT. The dose-length product (DLP) was 605.33 mGy-cm. The mA was a djusted according to patient size. Iterative reconstruction technique was employed. FINDINGS: There is no intracranial hemorrhage, acute infarction, or abnormal mass lesion. The ventric les are normal. There is no abnormal mass effect or midline shift. The lamb-white matter differentiat ion is normal. The basal cisterns are patent. The orbits are normal. There is mild mucosal thickening of the paranasal sinuses. IMPRESSION: 1. No acute intracranial abnormality. Reviewed, dictated and finalized at location A. E MACHINE OPERATOR
--- NOTE | ~2022-04-11 | CT_ITS ---
EXAMINATION: CT cervical spine wo con DATE: 04/11/2022 13:46 INDICATION: head injury TECHNIQUE: Computed tomography (CT) of the cervical spine was performed without intravenous contrast. Automated exposure control and iterative reconstruction technique were employed. The dose-length pro duct was 469.56 mGy-cm. COMPARISON: None. FINDINGS: Exam is mildly motion limited. Vertebral Body Alignment: Intact. Cervical straightening which can occur with muscle spasm or positio kimberley. Craniocervical and atlantoaxial alignment: No degenerative change. Alignment intact. Osseous structures/fracture: No evidence of a lytic or blastic process in the visualized spine. No e vidence of acute fracture. . Cervical soft tissues: No prevertebral soft tissue swelling. The paraspinal soft tissues planes are m aintained. Mild pulmonary reticular opacities and scattered groundglass opacities. Degenerative changes: Moderate degenerative disc disease at C5-6. No severe central canal or neural f oraminal narrowing. IMPRESSION: Mild motion artifact. No acute fracture or traumatic malalignment in the cervical spine. Lung opaciti es may reflect atelectasis, edema, or atypical infection. Reviewed, dictated and finalized at location K. ET PULLER IMPRESSION: Mild motion artifact. No acute fracture or traumatic malalignment in the cervic al spine. Lung opacities may reflect atelectasis, edema, or atypical infection.
[2022-04-11 13:20] VITALS: BP 124/70; PULSE 87; RESP 12; TEMP 36.1; O2SAT 100
[2022-04-11] MEDS: ONDANSETRON INJ 4 MG/2 ML VIAL IV PUSH (14:28)
[2022-04-11] MEDS: ACETAMINOPHEN 500 MG TABLET 1000 MG PO (14:28)
--- NOTE | 2022-04-11 14:28 | ED.HA ---
HPI - Headache General Chief Complaint: Headache Stated Complaint: head injury Time Seen by Provider: 04/11/22 13:33 History of Present Illness HPI Narrative: 37-year-old female presents to the emergency room via EMS for evaluation of a head injury. States that she was at work when the door of an ice machine came down and struck her of the forehead. Denies loss of consciousness or altered mental status. Denies any visual or hearing changes. States that she is dizzy and nauseated. Also reports left-sided neck pain Related Data Allergies Allergy/AdvReac Type Severity Reaction Status Date / Time No Known Allergies Allergy Verified 04/11/22 14:28 Review of Systems Review of Systems: CONSTITUTIONAL: Denies fever, chills, or sweats. EYES: Denies visual changes, redness, or discharge. ENT: Denies rhinorrhea, congestion, sore throat, or otalgia. CARDIOVASCULAR: Denies chest pain, palpitations, or edema. RESPIRATORY: Denies cough or dyspnea. GASTROINTESTINAL: Denies abdominal pain, nausea, vomiting, or diarrhea. GENITOURINARY: Denies dysuria or hematuria. SKIN: Denies rash or itching. MUSCULOSKELETAL: Reports neck pain NEUROLOGIC: Reports headache PSYCHIATRIC: Denies anxiety or depression. PMFSH Past Medical History Medical History Light headedness Right wrist injury Weight gain Surgical History Surgical History History of left oophorectomy Family History Family History Father Diabetes mellitus Social History Social History Smoking status: Never smoker Second hand tobacco smoke exposure: No Alcohol intake: never Substance use: never Gender identity (if verbalized by the patient): Female Spiritual care concerns: No Exam Narrative: GENERAL: Well-appearing, well-nourished, no physical limitations, and in no acute distress. HEAD: Normocephalic, minimal soft tissue swelling to the forehead. No other evidence of trauma. EYES: Conjunctivae normal, PERRLA and EOMI. CHEST: Clear to auscultation. No respiratory distress. No wheezes rales or rhonchi. HEART: Regular rate and rhythm. No murmur heard. Normal peripheral pulses. BACK: No midline cervical tenderness, step-offs, bony abnormality; FROM. Tenderness to the left lateral neck muscles EXTREMITIES: Normal range of motion. No edema. No clubbing or cyanosis SKIN: Warm, dry, no rash. No noted wounds NEURO: No focal deficits. Alert and oriented x3. MAEW. CN's II-XI intact bilaterally, normal gait PSYCH: Cooperative. Normal mood and affect. Course Vital Signs Vital signs: Vital Signs Temperature 36.1 C L 04/11/22 13:20 Pulse Rate 87 04/11/22 13:20 Respiratory Rate 12 04/11/22 13:20 Blood Pressure 124/70 04/11/22 13:20 Pulse Oximetry 100 04/11/22 13:20 Oxygen Delivery Room Air 04/11/22 13:20 Temperature 36.1 C L 04/11/22 13:20 Pulse Rate 87 04/11/22 13:20 Respiratory Rate 12 04/11/22 13:20 Blood Pressure 124/70 04/11/22 13:20 Pulse Oximetry 100 04/11/22 13:20 Oxygen Delivery Room Air 04/11/22 13:20 MDM - Headache Imaging Data Radiologist's impression: Impressions Head CT 04/11/22 13:58 IMPRESSION: 1. No acute intracranial abnormality. Cervical Spine CT 04/11/22 14:20 IMPRESSION: Mild motion artifact. No acute fracture or traumatic malalignment in the cervical spine. Lung opacities may reflect atelectasis, edema, or atypical infection. Discharge Plan Discharge Clinical Impression: Head injury, Nausea Patient Disposition: Home, Self-Care Condition: Stable Instructions: Antibiotic Form, Head Injury (ED) Additional Instructions: May take Tylenol and ibuprofen as needed for your headache. Prescriptions: New ondansetron 4 mg table
== END 2022-04-11 15:08 | disposition home or self-care (01) ==
PROVIDERS: Emergency Provider Nurse Practitioner Family
DX: S09.90XA Unspecified injury of head, initial encounter (principal); R11.0 Nausea; Z90.721 Acquired absence of ovaries, unilateral; W20.8XXA Other cause of strike by thrown, projected or falling object, initial encounter
CPT/HCPCS: 70450; 72125; 96374; 99284; A9270; J2405

== ENCOUNTER 2022-07-19 11:11 | Emergency (ER) | payer OTHER, SELFPAY ==
--- NOTE | ~2022-07-19 | XR_ITS ---
EXAMINATION: XR wrist LT min 3V DATE: 07/19/2022 11:31 INDICATION: Left wrist pain TECHNIQUE: Posteroanterior, ulnar deviation, oblique, and lateral views of the left wrist were obtain ed. COMPARISON: None available FINDINGS: Bone alignment is normal. No fracture is identified. There is mild soft tissue swelling of the wrist. IMPRESSION: 1. Wrist soft tissue swelling without definite acute osseous abnormality. Reviewed, dictated and finalized at location L.
--- NOTE | 2022-07-19 11:30 | ED.UPPEXIN ---
HPI - Extremity Injury (Upper) General Chief Complaint: Extremity Injury, Upper Stated Complaint: Left Wrist Pain Time Seen by Provider: 07/19/22 11:45 Source: patient, RN notes reviewed and old records reviewed Mode of arrival: ambulatory Limitations: no limitations History of Present Illness HPI narrative: 37-year-old female presents to the [facility] with complaints of left wrist pain, generalized To the distal aspect of the ulnar and radius. No snuffbox tenderness. Mild swelling noted to the dorsal aspect. Decreased range of motion secondary to pain. Patient states that she was at work when she fell landing on her wrist this morning MD complaint: injury to: left and wrist Related Data Allergies Allergy/AdvReac Type Severity Reaction Status Date / Time No Known Allergies Allergy Verified 07/19/22 11:43 Review of Systems Review of Systems: All systems reviewed & are unremarkable except as noted in HPI and below Constitutional: Constitutional: Reports no additional constitutional complaints Eyes: Eyes: Reports no additional eye complaints ENT: Reports system reviewed and no additional complaints, except as documented Cardiovascular: Cardiovascular: Reports no additional cardiovascular complaints, Denies chest pain and Denies dyspnea Respiratory: Respiratory: Reports no additional respiratory complaints, Denies chest congestion, Denies cough and Denies dyspnea Gastrointestinal: Gastrointestinal: Reports no additional gastrointestinal complaints, Denies abdominal pain, Denies nausea and Denies vomiting Musculoskeletal: Musculoskeletal: Reports as per HPI Integumentary/Breasts: Skin/Breast: Reports system reviewed and no additional complaints, except as docu Neurologic: Reports system reviewed and no additional complaints, except as documented Psychiatric: Psychiatric: Reports no additional psychiatric complaints Allergic/Immunologic: Allergic/Immunologic: Reports no additional allergic/immunologic complaints [facility] Past Medical History Medical History Light headedness Right wrist injury Weight gain Surgical History Surgical History History of left oophorectomy Family History Family History Father Diabetes mellitus Social History Social History Smoking status: Never smoker Second hand tobacco smoke exposure: No Alcohol intake: never Substance use: never Living arrangements: with family Occupation/Education: occupation Gender identity (if verbalized by the patient): Female Spiritual care concerns: No Comments At the time of my signature, I reviewed and agree with the nursing past medical, surgical, social, and family history. There is no relevant family history pertinent to the patient complaint. Exam Const: General: cooperative, healthy appearing, comfortable, no acute distress, well developed, alert and well nourished Nutritional Appearance: well nourished Orientation/consciousness: patient oriented x3 Limitations: no limitations HENMT: Head: normal to inspection Ears: hearing grossly normal bilaterally and external ears normal Face/Nose/Sinus: Normal external nose present, Normal nares present, Normal nasal mucous membranes and turbinates present and normal facial exam Face and sinus: normal facial exam Mouth: Yes Normal oral and palatal mucosa present, Yes lip normal and Yes moist mucous membranes Eyes: General: appearance normal, both eyes and all related structures Alignment and Position: alignment normal Periorbital: periorbital findings normal Conjunctivae: conjunctivae normal Pupils: Equal, round and reactive pupils present EOM: EOMs intact bilaterally Neck: Neck: normal visual inspection, full ROM, no lymphadenopathy and no meningeal signs Chest:
[2022-07-19 11:32] VITALS: BP 111/54; PULSE 91; RESP 12; TEMP 36.6; O2SAT 100
== END 2022-07-19 12:02 | disposition home or self-care (01) ==
PROVIDERS: Emergency Provider Nurse Practitioner
DX: S63.502A Unspecified sprain of left wrist, initial encounter (principal); S60.212A Contusion of left wrist, initial encounter; W19.XXXA Unspecified fall, initial encounter; Y99.0 Civilian activity done for income or pay
CPT/HCPCS: 73110; 99213; G0463

== ENCOUNTER 2022-08-22 13:16 | Emergency (ER) | payer OTHER, SELFPAY ==
[2022-08-22 13:25] VITALS: BP 117/59; PULSE 87; RESP 14; TEMP 37.2; O2SAT 100
--- NOTE | 2022-08-22 13:41 | ED.EXTPRO ---
HPI - Extremity Problem General Chief complaint: Extremity Problem,Nontraumatic Stated complaint: Left Hand Pain Time Seen by Provider: 08/22/22 13:26 Source: patient and RN notes reviewed Mode of arrival: ambulatory Limitations: no limitations History of Present Illness HPI Narrative: Patient presents today complaining of left wrist pain. She injured her wrist at the end of June after falling at work. She was seen at [facility] on 07/19/2022 where an x-ray was completed and was negative. She was diagnosed with a wrist contusion at that time. This was a workman's compensation injury, and her employer immediately returned her to work. 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 ? States her symptoms never resolved and her wrist test started to swell again over the last couple of days. Her pain as also become sharp again last night and increases significantly with movement of the wrist. She currently rates her pain 9/10. She has not followed up with anyone since her visit at [facility]. Related Data Home Medications Medication Instructions Recorded Confirmed No Home Medications 08/22/22 08/22/22 Allergies Allergy/AdvReac Type Severity Reaction Status Date / Time No Known Allergies Allergy Verified 08/22/22 13:29 Review of Systems Review of Systems: CONSTITUTIONAL: Denies body aches, fever, chills, or sweats. EYES: Denies visual changes, redness, or discharge. ENT: Denies rhinorrhea, congestion, sore throat, or otalgia. CARDIOVASCULAR: Denies chest pain, palpitations, or edema. RESPIRATORY: Denies cough or dyspnea. GASTROINTESTINAL: Denies abdominal pain, nausea, vomiting, or diarrhea. GENITOURINARY: Denies dysuria or hematuria. SKIN: Denies rash, itching, or wounds. MUSCULOSKELETAL: Denies back pain, or myalgia.+ left wrist pain NEUROLOGIC: Denies headache, numbness, tingling, or weakness. PSYCH: Denies depression or anxiety. [facility] Past Medical History Medical History Light headedness Right wrist injury Weight gain Surgical History Surgical History History of left oophorectomy Family History Family History Father Diabetes mellitus Social History Social History Smoking status: Never smoker Second hand tobacco smoke exposure: No Alcohol intake: never Substance use: never Living arrangements: with family Occupation/Education: occupation Gender identity (if verbalized by the patient): Female Spiritual care concerns: No Comments At time of signature, I have reviewed and agree with nursing past medical, surgical, social and family history unless otherwise noted. Please see nursing chart for further information. There is no relevant family history pertinent to the presenting complaint Exam Narrative: GENERAL: Well-appearing, well-nourished, and in no acute distress. HEAD: Normocephalic, atraumatic. EYES: EOMI. No redness or drainage. Conjunctivae normal. ENT: Mucous membranes pink and moist. NECK: Normal AROM. CHEST: No respiratory distress. EXTREMITIES: Left wrist: Tenderness to the distal ulna. Scant edema noted. Pain with pronation, supination, and extension. Distal sensation intact. Capillary refill normal. Radial pulse normal. SKIN: Warm, dry, no rash. Capillary refill normal. Normal skin turgor. NEURO: No focal deficits. Alert and oriented x3. Gait steady. PSYCH: Normal affect. No signs of depression or anxiety. Course Course Level of Care: Express Care Visit Vital Signs Vital signs: Vital Signs Temperature 98.9 F 08/22/22 13:25 Pulse Rate 87 08/22/22 13:25 Respiratory Rate 14 08/22/22 13:25 Blood Pressure 117/59 L 08/22/22 13:25 Pulse Oximetry 100 08/22/22 13:25
== END 2022-08-22 13:48 | disposition home or self-care (01) ==
PROVIDERS: Emergency Provider Nurse Practitioner
DX: M25.532 Pain in left wrist (principal)
CPT/HCPCS: 99212; G0463

== ENCOUNTER 2022-08-31 13:53 | Outpatient (CLI) | payer OTHER, SELFPAY ==
--- NOTE | ~2022-08-31 | MR_ITS ---
EXAMINATION: MR wrist LT wo con DATE: 08/31/2022 14:57 INDICATION: Left wrist injury with ulnar-sided pain TECHNIQUE: Magnetic resonance imaging (MRI) of the left wrist was performed without intravenous contr ast. Sequences performed include axial PD-weighted FSE and PD-weighted FS FSE, coronal PD-weighted FS FSE and T1-weighted SE, and sagittal PD-weighted FS FSE and PD-weighted FSE. COMPARISON: Left wrist radiographs dated 08/24/2022 FINDINGS: Intrinsic ligaments: The scapholunate and lunotriquetral ligaments are normal. Triangular fibrocartilage complex (TFCC): Partial tear of the triangular fibrocartilage complex involving the ulnar and foveal attachments as w ell as the dorsal radioulnar ligament. There is also suggestion of a tiny tear at the radial side of the central fibrocartilaginous disc. The extensor carpi ulnaris tendon subsheath is normal. Extensor wrist: Extensor tendons of the wrist are normal. No tenosynovitis. Flexor wrist: The flexor tendons of the wrist are normal. No abnormality in the carpal tunnel with normal median n erve. Guyon's canal: Guyon's canal including the ulnar nerve and artery are normal. Bones/other: 2 mm ulnar positive variance is also seen on the prior radiographs. Normal marrow signal. No fracture , erosions, avascular necrosis or pathologic marrow replacing process. Joint spaces are normal with no focal cartilage defects appreciated. There is a multilobulated ganglion cyst arising from the vola r aspect of the wrist. There are 2 main components the more distal measuring 9 x 5 x 3 mm positioned likely within the fibers of the volar radioscaphocapitate ligament which communicates via an addition al small neck to a 12 x 6 x 9 mm multilobulated collection positioned volar to the distal radius. IMPRESSION: 1. Partial tear of the triangular fibrocartilage complex which involves the foveal and ulnar styloid attachments, the dorsal radioulnar ligament and with small tear at the radial side of the central fib er cartilaginous disc. 2. Multilobulated ganglion cyst at the volar aspect of the wrist. Reviewed, dictated and finalized at location B. IMPRESSION: 1. Partial tear of the triangular fibrocartilage complex which involves the fov eal and ulnar styloid attachments, the dorsal radioulnar ligament and with smal l tear at the radial side of the central fiber cartilaginous disc. 2. Multilobulated ganglion cyst at the volar aspect of the wrist.
== END 2022-08-31 13:54 | disposition home or self-care (01) ==
LOC: ANHIMG 14:05
PROVIDERS: Visit Provider Orthopaedic Surgery
DX: S69.92XA Unspecified injury of left wrist, hand and finger(s), initial encounter (principal); X58.XXXA Exposure to other specified factors, initial encounter
CPT/HCPCS: 73221